=== PATIENT | female | born 1940 | race Caucasian/White ===

== ENCOUNTER 2025-09-16 12:05 | Emergency (ER) | payer MEDICARE ==
[2025-09-16] MEDS ORDERED: DAILY VITE1 EACH PO (12:17)
[2025-09-16] MEDS ORDERED: NORMODYNE,TRAN100 MG PO (12:17)
[2025-09-16] MEDS ORDERED: PREVAGEN (12:18)
[2025-09-16] MEDS ORDERED: LEXAPRO20 MG PO (12:18)
[2025-09-16] MEDS ORDERED: CALCIUM +D & M1 EACH PO (12:19)
[2025-09-16] MEDS ORDERED: PLAVIX75 M1 PO (12:19)
[2025-09-16] MEDS ORDERED: ASPIRIN81 M1 PO (12:19)
[2025-09-16] MEDS ORDERED: PANTOPRAZOLE SO40 MG PO (12:20)
[2025-09-16] MEDS ORDERED: LEVOTHYROXINE150 MC1 PO (12:20)
[2025-09-16] MEDS ORDERED: ROSUVASTATIN CA20 MG PO (12:21)
[2025-09-16] MEDS ORDERED: ARICEPT10 M1 PO (12:21)
[2025-09-16] MEDS ORDERED: OZEMPIC1 MG/0.71 SQ (12:21)
[2025-09-16 12:32] LABS: BILIRUBIN Negative (Negative); BLOOD Negative (Negative); CLARITY Clear (Clear); COLOR Yellow (Yellow); KETONE Negative (Negative); LEUKO ESTERASE Negative (Negative); NITRITE Negative (Negative); PH 6.5 (4.5-8.0); SPECIFIC GRAVITY 1.015 (1.001-1.030); UROBILINOGEN 0.2 E.U./dl (0.0-1.0)
[2025-09-16 12:33] LABS: BASO # 0.1 10*3/uL (0.0-0.1); BASO % 0.6 % (0.0-1.0); EOS # 0.5 10*3/uL (0.0-0.4); EOS % 5.8 % (1.0-4.0); MEAN CELL VOLUME 91.3 fl (81.0-99.0); MEAN CORPUSCULAR HGB 27.9 pg (27.0-31.0); MEAN PLATELET VOLUME 10.3 fl (9.6-12.3); MONO # 0.5 10*3/uL (0.1-1.0); MONO % 6.4 % (3.0-9.0); NEUT # 5.3 10*3/uL (2.3-7.9); NEUT % 66.5 % (47.0-73.0); NUCLEATED RED BLOOD CELL 0.0 % (0.0-0.0); NUCLEATED RED BLOOD CELL 0.0 10*3/uL (0.0-0.0); PLATELET COUNT AUTOMATED 238 10*3/uL (130-400); RED CELL DISTRI WIDTH 14.4 % (0-14.5)
[2025-09-16 12:40] LABS: URINE AMPHETAMINES Negative (1000ng/ml); URINE BARBITURATES Negative (200ng/ml); URINE BENZODIAZEPINES Negative (200ng/ml); URINE CANNABINOIDS (THC) Negative (50ng/ml); URINE COCAINE Negative (300ng/ml); URINE METHADONE Negative (300ng/ml); URINE OPIATES Negative (300ng/ml); URINE PHENCYCLIDINE Negative (25ng/ml)
[2025-09-16 12:41] LABS: EPITHELIAL CELLS TNTC; MUCOUS TRACE; WBC 0-2 wbc/hpf (0-5)
[2025-09-16 12:54] LABS: BUN 14 mg/dl (9-23); SGPT/ALT 16 U/L (5-49)
[2025-09-16 12:55] LABS: ETHYL ALCOHOL < 3.0 mg/dl (<3)
== END 2025-09-16 16:41 | disposition home or self-care (01) ==
LOC: ED 12:05
PROVIDERS: Nurse Practitioner Family
DX: F43.23 Adjustment disorder with mixed anxiety and depressed mood (principal); F03.90 Unspecified dementia, unspecified severity, without behavioral disturbance, psychotic disturbance, mood disturbance, and anxiety; Z88.8 Allergy status to other drugs, medicaments and biological substances